=== PATIENT | female | born 1985 | race Caucasian/White ===

== ENCOUNTER 2018-07-30 11:02 | Emergency (ER) | payer SELFPAY ==
[~2018-07-30] VITALS: Ht 170.2 cm; Wt 71.5 kg
[~2018-07-30 11:02] MED LIST: CEPH-443 PO; IBUP800T48 PO
[2018-07-30 11:04] VITALS: Ht 170.2 cm; Wt 71.5 kg
--- NOTE | 2018-07-30 12:19 | ERD ---
ER Documentation Chief Complaint Chief Complaint blood in stool x 3 weeks , 22 weeks preg , see note HPI The patient is a 33-year-old female, presenting to the ER because of intermittent bloody stool and formed straining. She is 22 weeks , was put on iron supplements due to anemia for the last 3 weeks. She has been consti pated for the last 3 weeks, denies fever, chills, neck pain, chest pain or dyspnea, abdominal pain, vomiting, dysuria. She does not smoke, 2 para 1 1 Past medical history: Anemia Past surgical history: Cervical cyst ROS All systems reviewed and are negative except as per history of present illness. Medications Home Meds Reported Medications Ferrous Sulfate* (Ferrous Sulfate*) 325 Mg Tabec, 325 MG PO DAILY, TAB 07/30/18 Vit No.78/Iron/FA (Prenatabs FA Tablet) 1 Each Tablet, 1 TAB PO DAILY, TAB 07/30/18 Discontinued Scripts Cephalexin* (Keflex*) 500 Mg Capsule, 500 MG PO QID for 5 Days, CAP Prov:SAJI SIDHU. SEXUAL ASSAULT RESPONSE COORDINATOR 11/18/14 Ibuprofen* (Motrin*) 800 Mg Tab, 800 MG PO Q8 PRN for PAIN AND OR ELEVATED TEMP, #30 TAB Prov:SAJI SIDHU. SEXUAL ASSAULT RESPONSE COORDINATOR 11/18/14 Allergies Allergies: Coded Allergies: No Known Allergy (Unverified , 07/30/18) PMhx/Soc History of Surgery: Yes (Neck Abcess Removal) Anesthesia Reaction: No Hx Neurological Disorder: No Hx Respiratory Disorders: No Hx Cardiac Disorders: No Hx Psychiatric Problems: No Hx Miscellaneous Medical Probl: No Hx Alcohol Use: No Hx Substance Use: Yes (Cannabis) Hx Tobacco Use: Yes Physical Exam Vitals Vital Signs Date Temp Pulse Resp B/P (MAP) Pulse Ox O2 O2 Flow FiO2 Time Delivery Rate 07/30/18 68 18 116/78 100 Room Air 14:06 (91) 07/30/18 98.1 77 18 127/69 99 11:04 (88) Physical Exam Const: No acute distress. Head: Atraumatic. Eyes: Normal Conjunctiva. ENT: Normal External Ears, Nose and Mouth. Neck: Full range of motion. No meningismus. Resp: Clear to auscultation bilaterally. Cardio: Regular rate and rhythm. Abd: Soft, non distended, normal bowel sounds, non tender. Skin: No petechiae or rashes. Back: No midline or flank tenderness. Ext: No cyanosis, or edema. Neur: Awake and alert. No focal deficit Psych: Normal Mood and Affect. Rectal: No external hemorrhoids Result Diagram: 07/30/18 1248 07/30/18 1248 Results 24 hrs Laboratory Tests Test 07/30/18 12:48 White Blood Count 12.3 10^3/ul Red Blood Count 3.85 10^6/ul Hemoglobin 12.3 g/dl Hematocrit 35.1 % Mean Corpuscular Volume 91.2 fl Mean Corpuscular Hemoglobin 31.9 pg Mean Corpuscular Hemoglobin Concent 35.0 g/dl Red Cell Distribution Width 12.6 % Platelet Count 240 10^3/UL Mean Platelet Volume 8.9 fl Immature Granulocytes % 0.600 % Neutrophils % 70.9 % Lymphocytes % 19.7 % Monocytes % 7.4 % Eosinophils % 1.1 % Basophils % 0.3 % Nucleated Red Blood Cells % 0.0 /100WBC Immature Granulocytes # 0.070 10^3/ul Neutrophils # 8.7 10^3/ul Lymphocytes # 2.4 10^3/ul Monocytes # 0.9 10^3/ul Eosinophils # 0.1 10^3/ul Basophils # 0.0 10^3/ul Nucleated Red Blood Cells # 0.0 10^3/ul Prothrombin Time 12.2 Sec Prothrombin Time Ratio 1.0 INR International Normalized Ratio 0.89 Activated Partial Thromboplast Time 30.6 Sec Sodium Level 136 mmol/L Potassium Level 3.9 mmol/L Chloride Level 106 mmol/L Carbon Dioxide Level 23 mmol/L Anion Gap 7 Blood Urea Nitrogen 7 mg/dl Creatinine 0.45 mg/dl Est Glomerular Filtrat Rate mL/min > 60 mL/min Glucose Level 83 mg/dl Calcium Level 9.5 mg/dl Total Bilirubin 0.6 mg/dl Direct Bilirubin 0.00 mg/dl Indirect Bilirubin 0.6 mg/dl Aspartate Amino Transf (AST/SGOT) 17 IU/L Alanine Aminotransferase (ALT/SGPT) 18 IU/L Alkaline Phosphatase 57 IU/L Total Protein 6.8 g/dl Albumin 3.7 g/dl Globulin 3.10 g/dl Albumin/Globulin Ratio 1.19 Procedures/MDM MEDICAL MAKING DECISION: The patient is a 33-year-old female, presenting with acute hematochezia, most likely due to constipation. She is stable for outpatient follow-up The differential diagnoses considered include but are not limited to internal hemorrhoids, rectal fissure, carcinoma, polyp, hemorrhoid, fissure, diverticulosis, angiodysplasia. Departure Diagnosis: Primary Impression: Hematochezia Condition: Good Comments I discussed the findings with the patient. I advised the patient to follow-up with the primary physician in about 2-3 days for evaluation and referral to product architect, sooner if needed and return if any concern. Disclaimer: Inadvertent spelling and grammatical errors are likely due to EHR/dictation software use and do not reflect on the overall quality of patient care. Also, please note that the electronic time recorded on this note does not necessarily reflect the actual time of the patient encounter. ALBERT KRAMER MD Jul 30, 2018 12:19
[2018-07-30] MEDS ORDERED: PREN-17 PO (13:46)
[2018-07-30] MEDS ORDERED: FER325 PO (13:46)
[2018-07-30 14:06] VITALS: BP 116/78; PULSE 68; RESP 18
== END 2018-07-30 14:20 | disposition home or self-care (01) ==
LOC: E/R 11:02
DX: O20.8 Other hemorrhage in early pregnancy (principal); K92.1 Melena; Z3A.22 22 weeks gestation of pregnancy
CPT/HCPCS: 80053; 85025; 85610; 85730; 86850; 86900; 86901; 99283

== ENCOUNTER 2018-10-16 04:51 | Emergency (ER) | payer BC, MEDICAID ==
[~2018-10-16] VITALS: Ht 162.6 cm; Wt 74.0 kg
[~2018-10-16 04:51] MED LIST changes: -CEPH-443 PO; +FER325 PO; -IBUP800T48 PO; +PREN-17 PO
[2018-10-16 04:53] VITALS: BP 129/79; PULSE 83; RESP 22; Ht 162.6 cm; Wt 74.0 kg
[2018-10-16] MEDS ORDERED: ACETAMINOPHEN 500 MG TAB PO STA (06:14)
[2018-10-16] MEDS ORDERED: ACET325T33 PO (06:16)
[2018-10-16] MEDS ORDERED: AMOX1TAB10 PO (06:16)
--- NOTE | 2018-10-16 06:50 | ERD ---
ER Documentation Chief Complaint Chief Complaint 33WKS PREG-NO PREG PROBLEMS; LEFT EAR PAIN X1.5DAYS WITH COUGH X1WK HPI 33-year-old female presenting with pain to her left ear x1 day. Patient has tactile fevers. She had a recent cold over the last week with runny nose and cough. She took Tylenol with mild alleviation of pain. Patient is 33 weeks without complication. Denies other medical problems. NKDA. Surgical history denies. Social history denies ROS All systems reviewed and are negative except as per history of present illness. Medications Home Meds Active Scripts Acetaminophen* (Tylenol*) 325 Mg Tablet, 2 TAB PO Q6 PRN for PAIN AND OR ELEVATED TEMP, #20 TAB Prov:MAURI FERREIRA PA-C 10/16/18 Amoxicillin/Potassium Clav (Amox-Clav 875-125 mg Tablet) 875-125 mg Tab, 1 TAB PO BID for 7 Days, #14 TAB Prov:MAURI FERREIRA PA-C 10/16/18 Reported Medications Ferrous Sulfate* (Ferrous Sulfate*) 325 Mg Tabec, 325 MG PO DAILY, TAB 07/30/18 Vit No.78/Iron/FA (Prenatabs FA Tablet) 1 Each Tablet, 1 TAB PO DAILY, TAB 07/30/18 Allergies Allergies: Coded Allergies: No Known Allergy (Unverified , 07/30/18) PMhx/Soc History of Surgery: Yes (Neck Abcess Removal) Anesthesia Reaction: No Hx Neurological Disorder: No Hx Respiratory Disorders: No Hx Cardiac Disorders: No Hx Psychiatric Problems: No Hx Miscellaneous Medical Probl: No Hx Alcohol Use: No Hx Substance Use: Yes (Cannabis) Hx Tobacco Use: No Smoking Status: Former smoker FmHx Family History: No diabetes, No coronary disease, No other Physical Exam Vitals Vital Signs Date Temp Pulse Resp B/P (MAP) Pulse Ox O2 O2 Flow FiO2 Time Delivery Rate 10/16/18 97.0 83 22 129/79 99 04:53 (96) Physical Exam GENERAL: The patient is well-appearing, well-nourished, in no acute distress HEENT: Atraumatic. Conjunctivae are pink. Pupils equal, round, and reactive to light. There is no scleral icterus. Tympanic membranes erythematous to the left ear with bulging. No perforation. Oropharynx clear. NECK: C-spine is soft and supple. There is no meningismus. There is no cervical lymphadenopathy. CHEST: Clear to auscultation bilaterally. There are no rales, wheezes or rhonchi. HEART: Regular rate and rhythm. No murmurs, clicks, rubs or gallops. Results 24 hrs Current Medications Medications Dose Sig/Yen Start Time Status Last (Trade) Ordered Route PRN Stop Time Admin Dose Reason Admin 1,000 mg ONCE STAT 10/16/18 DC 10/16/18 Acetaminophen PO 06:14 06:25 (Tylenol 10/16/18 06:15 Tab) Procedures/MDM ER course: Tylenol given in ED. MDM: 33-year-old female presenting with pain to her left ear. Patient has findings consistent with otitis media. I have low suspicion for mastoiditis. I have low suspicion for retained foreign body or otitis externa. Patient is discharged with strict ER precautions and told to follow-up with primary care within 1 to 2 days for close evaluation. Patient is discharged with strict ER precautions. All questions answered at discharge Departure Diagnosis: Primary Impression: Left ear pain Condition: Stable Patient Instructions: Otitis Media, Abx Tx (Adult) Referrals: [facility] YOU HAVE RECEIVED A MEDICAL SCREENING EXAM AND THE RESULTS INDICATE THAT YOU DO NOT HAVE A CONDITION THAT REQUIRES URGENT TREATMENT IN THE EMERGENCY DEPARTMENT. FURTHER EVALUATION AND TREATMENT OF YOUR CONDITION CAN WAIT UNTIL YOU ARE SEEN IN YOUR DOCTORS OFFICE WITHIN THE NEXT 1-2 DAYS. IT IS YOUR RESPONSIBILITY TO MAKE AN APPOINTMENT FOR FOLOW-UP CARE. IF YOU HAVE A PRIMARY DOCTOR --you should call your primary doctor and schedule an appointment IF YOU DO NOT HAVE A PRIMARY DOCTOR YOU CAN CALL OUR PHYSICIAN REFERRAL HOTLINE AT IF YOU CAN NOT AFFORD TO SEE A PHYSICIAN YOU CAN CHOSE FROM THE FOLLOWING [facility] [address] [facility] [address] [facility] [address] [facility] [facility] [address] [facility]. [facility] [address] [facility]. [facility]. [address] Additional Instructions: FOLLOW UP WITH YOUR PRIMARY CARE PHYSICIAN TOMORROW.Return to this facility if you are not improving as expected. MAURI FERREIRA PA-C Oct 16, 2018 06:50
== END 2018-10-16 06:29 | disposition home or self-care (01) ==
LOC: FTE 04:51
DX: O99.89 Other specified diseases and conditions complicating pregnancy, childbirth and the puerperium (principal); H92.02 Otalgia, left ear; Z3A.33 33 weeks gestation of pregnancy
CPT/HCPCS: 99283; Z7610

== ENCOUNTER 2018-11-22 17:31 | Outpatient (CLI) | payer BC ==
[~2018-11-22] VITALS: Ht 170.2 cm; Wt 75.3 kg
[~2018-11-22 17:31] MED LIST changes: +ACET325T33 PO; +AMOX1TAB10 PO
[2018-11-22 18:22] VITALS: Ht 170.2 cm; Wt 75.3 kg
[2018-11-22] MEDS ORDERED: ONDANSETRON 4 MG INJ IV PRN (18:30)
[2018-11-22] MEDS: LACTATED RINGER'S 1,000 ML IV SCH ×2 (19:20→23:38)
[2018-11-23] MEDS ORDERED: LACTATED RINGER'S 1,000 ML IV PRN (01:55)
[2018-11-23] MEDS ORDERED: LACTATED RINGER'S 1,000 ML IV SCH (01:55)
[2018-11-23] MEDS ORDERED: OXYTOCIN 30 UNITS/LR 500 ML IV SCH ×2 (02:00)
[2018-11-23] MEDS ORDERED: OXYTOCIN 30 UNITS/LR 500 ML IV PRN (02:00)
[2018-11-23] MEDS ORDERED: CARBOPROST 250 MCG INJ IM PRN (02:00)
[2018-11-23] MEDS ORDERED: LIDOCAINE 1% (MPF) 30 ML INJ INJ PRN (02:00)
[2018-11-23] MEDS ORDERED: IBUPROFEN 600 MG TAB PO PRN (02:00)
[2018-11-23] MEDS ORDERED: METHYLERGONOVINE 0.2 MG INJ IM PRN (02:00)
[2018-11-23] MEDS ORDERED: MISOPROSTOL 200 MCG TAB PR PRN (02:00)
[2018-11-23] MEDS ORDERED: BUTORPHANOL 2 MG INJ IV PRN (02:00)
--- NOTE | 2018-11-23 02:46 | TRIAGE ---
OB Triage Datetime Report Generated by CPN: 11/23/2018 02:46 Datetime: 11/23/2018 02:00 Labor Evaluation Frequency: 4-6 Monitor Mode: External Duration (sec)2399: 60-90 Pattern: Normal: <= 5 Contractions in 10 Minutes Heart Rate FHR Baseline Rate: 145 Monitor Mode: External US Variability: Moderate 6-25 bpm Accelerations: 15X15 Decelerations: None Datetime: 11/23/2018 01:47 Effacement (%): 0 Station: -3 Membrane Status: Intact Datetime: 11/23/2018 01:33 Pain Assessment Pain Scale: 4 Pain Presence: Intermittent Pain Type: Ache Pain Location: Abdomen; Back Pain Relief Measures: Comfort Measures Vaginal Exam Dilatation (cms): 0.0 Datetime: 11/23/2018 01:00 Labor Evaluation Frequency: IRREGULAR Monitor Mode: External Duration (sec)2399: 40-120 Pattern: Normal: <= 5 Contractions in 10 Minutes Heart Rate FHR Baseline Rate: 145 Monitor Mode: External US Variability: Moderate 6-25 bpm Accelerations: 15X15 Decelerations: Variable Category: Category II Datetime: 11/23/2018 00:00 Labor Evaluation Frequency: IRREGULAR Monitor Mode: External Duration (sec)2399: 50-90 Pattern: Normal: <= 5 Contractions in 10 Minutes Heart Rate FHR Baseline Rate: 145 Monitor Mode: External US Comments: LOSS OF CONTACT DUE TO CHANGES IN PT'S POSITIONS Datetime: 11/22/2018 23:36 Maternal Assessment Level of Consciousness: Keenly Alert, Responsive Respiratory Effort: Unlabored; Regular Rhythm; Equal Expansion Nausea/Vomiting: Hx of Nausea/Vomiting Monitor Mode: External Monitor Mode: External US Pain Assessment Pain Scale: 6 Pain Presence: Intermittent Pain Type: Ache Pain Location: Abdomen; Back Pain Goal: 0 Pain Relief Measures: Comfort Measures Datetime: 11/22/2018 23:00 Labor Evaluation Frequency: IRREGULAR Monitor Mode: External Duration (sec)2399: 40-110 Pattern: Normal: <= 5 Contractions in 10 Minutes Heart Rate FHR Baseline Rate: 150 Monitor Mode: External US Variability: Moderate 6-25 bpm Accelerations: 15X15 Comments: LOSS OF CONTACT Datetime: 11/22/2018 22:00 Labor Evaluation Frequency: 1.5-3 Monitor Mode: External Duration (sec)2399: 40-100 Pattern: Normal: <= 5 Contractions in 10 Minutes Heart Rate FHR Baseline Rate: 155 Monitor Mode: External US Variability: Moderate 6-25 bpm Accelerations: 15X15 Decelerations: None Category: Category I Datetime: 11/22/2018 21:00 Labor Evaluation Frequency: 1.5-4 Monitor Mode: External Duration (sec)2399: 40-120 Pattern: Normal: <= 5 Contractions in 10 Minutes Heart Rate FHR Baseline Rate: 155 Monitor Mode: External US Variability: Moderate 6-25 bpm Accelerations: 15X15 Decelerations: None Datetime: 11/22/2018 20:00 Maternal Assessment Level of Consciousness: Keenly Alert, Responsive Headache: Temporal; Frontal Blurred Vision: No Respiratory Effort: Unlabored; Regular Rhythm; Equal Expansion Nausea/Vomiting: Present RUQ Epigastric Pain: Denies Labor Evaluation Frequency: 1.5-4.5 Monitor Mode: External Duration (sec)2399: 50-110 Pattern: Normal: <= 5 Contractions in 10 Minutes Heart Rate FHR Baseline Rate: 155 Monitor Mode: External US Variability: Moderate 6-25 bpm Accelerations: 15X15 Decelerations: None Category: Category I Pain Assessment Pain Scale: 6 Pain Presence: Intermittent Pain Type: Ache Pain Location: Abdomen; Back Pain Goal: 0 Pain Relief Measures: Comfort Measures Datetime: 11/22/2018 19:04 Vaginal Exam Dilatation (cms): 0.0 Datetime: 11/22/2018 18:48 EGA: 38.5 Datetime: 11/22/2018 18:21 Labor Evaluation Frequency: 2-4 Monitor Mode: External Duration (sec)2399: 50-80 Quality: Moderate Pattern: Normal: <= 5 Contractions in 10 Minutes Resting Tone [place]: Relaxed Heart Rate FHR Baseline Rate: 145 Monitor Mode: External US FHR Baseline Changes: No Baseline Change Variability: Moderate 6-25 bpm Accelerations: 15X15 Decelerations: None Category: Category I Pain Assessment Pain Scale: 2 Pain Presence: Intermittent Pain Type: Cramping Pain Location: Abdomen Pain Relief Measures: Comfort Measures Datetime: 11/22/2018 18:20 Time of Arrival: 11/22/2018 18:00 EGA: 38.5 Arrived By: Ambulatory Arrived From: Home Chief Complaint: N_V Movement: Present Contractions: Denies/Absent Rupture of Membranes: Denies Vaginal Bleeding: None Vaginal Discharge: Denies Recent Sexual Intercouse: Denies Abdominal Trauma: Not Applicable Patient Complaints: None Time Provider Notified: 11/22/2018 18:10 Provider Notified: KANDI Initial Plan: CBC,CMP,IV HYDRATION, ZOFRAN PRN. BPP, UA, NPO Datetime: 11/22/2018 18:04 Stage of : OB Triage Assessment Type: Triage Maternal Assessment Level of Consciousness: Keenly Alert, Responsive DTR's/Clonus: DTRs 2+; No Clonus Headache: Denies Blurred Vision: No Respiratory Effort: Unlabored; Regular Rhythm; Equal Expansion Breath Sounds, Left: Clear and Equal Breath Sounds, Right: Clear and Equal Nausea/Vomiting: Denies RUQ Epigastric Pain: Denies Lower Extremities Edema: None Degree: None Upper Extremities Edema: None Degree: None Facial Edema: None Temperature Route: Axillary Fall Risk Assessment History of Falling: (0) No Secondary Diagnosis: (0) No Ambulatory Aid: (0) Bedrest/Nurse Assist IV Therapy: (0) No Gait: (0) Normal/Bedrest/Immobile Mental Status: (0) Oriented to Own Ability Fall Score: 0 Fall Risk Score Definition: No Risk: No action required
[2018-11-23 08:09] VITALS: BP 112/64; PULSE 81; RESP 20
--- NOTE | 2018-11-23 15:44 | HP ---
Date/Time of Note Date/Time of Note DATE: 11/23/18 TIME: 14:44 OB - History Hx of Present Free Text/Dictation 33y.o was admitted through triage [place] of vomiting , and variable deceleration by her OB Initial VE closed/long/-3 EFM uc q2-6min pain 10 according to communication note no variable deceleration just CAT I tracing. Hx of using cocaine and meth in early . admitted for further evaluation and extended monitoring of FHR.and control of N&V. Chief Complaint: vomiting Estimated Due Date: Dec 01, 2018 : 2 Para: 0 Spontaneous : 0 Therapeutic : 0 Care: Other Ultrasounds: Other Obstetrical Complications: None Medical Complications: None Past Family/Social History * Past Medical, Surgical, Family and Obstetric Histories reviewed from chart. Blood Type: Unknown Rubella: unknown RPR/VDRL: Unknown GBS Status: Negative HBsAG: Unknown OB Admission Exam Vital Signs Vital Signs Vital Signs Date Temp Pulse Resp B/P (MAP) Pulse Ox O2 O2 Flow FiO2 Time Delivery Rate 11/23/18 97.9 81 20 112/64 Room Air 08:09 (80) Physical Exam HEENT: WNL Heart: Rhythm Normal Lungs: Clear, Equal Abdomen: WNL Extremities: Normal Reflexes: Normal Cervical Dilatation: None Effacement: 0% Station: -3 Membranes: Intact Amniotic Fluid: Unevaluable Heart Rate: 130's Accelerations: Accelerations Present Decelerations: No Decelerations Varibility: Moderate Contractions on Admission: >10 Minutes Apart Intensity: Mild Last 72 hours Lab Results CBC & BMP 11/22/18 19:00 Liver Function Test 11/22/18 19:00 Alanine Aminotransferase (ALT/SGPT) 27 Albumin 4.0 Alkaline Phosphatase 146 H Aspartate Amino Transf (AST/SGOT) 27 Direct Bilirubin 0.00 Total Protein 7.6 OB Assessment/Plan Other Assessment: A IUP 38w6d NIL N&V Plan: Other ( her OB dosent want to induce labotr and discharge home , explain to patient and discharge home) GERRY DENT MD Nov 23, 2018 15:44
--- NOTE | 2018-11-23 15:48 | PD.PPDC ---
QUALITY INTERN Discharge Instruction Diagnosis [id number] Final Diagnosis: Ducnu5u IUP 38w6d nausea vomiting Condition [id number] Patient Condition: Mcqho4h Stable Diet Krozi3Yd Diet: Uufjt7r Special Diet Activity/Restrictions Byagi5On Activity: Yntkd9q May Shower [id number] Restrictions: Tztyd7z No Lifting No Sexual Activity Nothing in the Vagina No [place] No Tampons, douche Follow-up Provider Information: f/u with her OB as scheduled or RTH prn with routine labor instructions GERRY DENT MD Nov 23, 2018 15:48
--- NOTE | 2018-11-23 15:50 | DS ---
Date/Time of Note Date/Time of Note DATE: 11/23/18 TIME: 15:49 Obstetrical Discharge Record Final Diagnosis Final Diagnosis: Term not delivered Complications Augmentation: No Induction: No Condition on Discharge Physical Assessment Last Vitals: EFM CAT I vss afebrile Voiding: Yes Bowel Movement: Yes Breast: Other () Fundus: Other () Abdomen and Incision: Episiotomy: n/a Calf Tenderness: No Patient Condition: Stable GERRY DENT MD Nov 23, 2018 15:50
== END 2018-11-23 14:00 | disposition home or self-care (01) ==
LOC: OBT 17:31 → L-D 17:31 → OBT 11-23 01:45 → UNDOADMIN 11-23 01:45 → L-D 11-23 01:45 → OBT 11-23 14:00
PROVIDERS: ATTEND Obstetrics & Gynecology
DX: O21.0 Mild hyperemesis gravidarum (principal); Z3A.38 38 weeks gestation of pregnancy
CPT/HCPCS: 36415; 76816; 76818; 80053; 80307; 81001; 85025; 85610; 85730; 86592; 86850; 86900; 86901; 87340; 96360; 96361; J2405; J7120; Z7500; G0463

== ENCOUNTER 2018-12-07 15:41 | Inpatient (IN) | payer BC ==
[~2018-12-07] VITALS: Ht 170.2 cm; Wt 77.2 kg
[~2018-12-07 15:41] MED LIST changes: -ACET325T33 PO; -AMOX1TAB10 PO
[2018-12-07 16:42] VITALS: BP 124/75; PULSE 78; RESP 18; Ht 170.2 cm; Wt 77.2 kg
[2018-12-07] MEDS ORDERED: BUTORPHANOL 2 MG INJ IV PRN ×2 (18:00)
[2018-12-07] MEDS ORDERED: OXYTOCIN 30 UNITS/LR 500 ML IV PRN (18:00)
[2018-12-07] MEDS ORDERED: CARBOPROST 250 MCG INJ IM PRN (18:00)
[2018-12-07] MEDS ORDERED: LIDOCAINE 1% (MPF) 30 ML INJ INJ PRN (18:00)
[2018-12-07] MEDS ORDERED: METHYLERGONOVINE 0.2 MG INJ IM PRN (18:00)
[2018-12-07] MEDS ORDERED: OXYTOCIN 30 UNITS/LR 500 ML IV SCH ×2 (18:00)
[2018-12-07] MEDS ORDERED: MISOPROSTOL 200 MCG TAB PR PRN (18:00)
[2018-12-07] MEDS: LACTATED RINGER'S 1,000 ML IV SCH (19:50)
[2018-12-07] MEDS: MISOPROSTOL 50 MCG CAPSULE PO SCH (21:05)
[2018-12-08] MEDS: LACTATED RINGER'S 1,000 ML IV SCH ×3 (02:53→19:37)
[2018-12-08] MEDS: MISOPROSTOL 50 MCG CAPSULE PO SCH ×5 (06:43→23:54)
[2018-12-08] MEDS ORDERED: MISOPROSTOL 50 MCG CAPSULE ONE (23:45)
[2018-12-09] MEDS: LACTATED RINGER'S 1,000 ML IV SCH ×4 (01:04→15:36)
[2018-12-09] MEDS ORDERED: LACTATED RINGER'S 1,000 ML IV PRN (01:05)
--- NOTE | 2018-12-09 01:52 | PREAC ---
Date/Time of Note Date/Time of Note DATE: 12/09/18 TIME: 01:51 Anesthesia Eval and Record Evaluation Time Pre-Procedure Interview DATE: 12/09/18 TIME: 01:51 Age 33 Sex female NPO: 8 hrs Preoperative diagnosis ;abor pain Planned procedure epidural Past Medical History Past Medical History: Includes Surgery & Anesthesia Issues No known issue Meds Anticoagulation: No Beta Nitish within 24 hr: No Reason Beta Nitish not given: Pt. not on B-Nitish Reported Medications Ferrous Sulfate* (Ferrous Sulfate*) 325 Mg Tabec, 325 MG PO DAILY, TAB 07/30/18 Vit No.78/Iron/FA (Prenatabs FA Tablet) 1 Each Tablet, 1 TAB PO DAILY, TAB 07/30/18 Current Medications Lactated Ringer's 1,000 ml @ 125 mls/hr Q8H IV Last administered on 12/08/18at 19:37; Admin Dose 125 MLS/HR; Start 12/07/18 at 17:41 Butorphanol Tartrate (Stadol) 1 mg Q2H PRN IV .PAIN SCALE 1-5; Start 12/07/18 at 18:00 Butorphanol Tartrate (Stadol) 2 mg Q2H PRN IV .PAIN SCALE 6-10; Start 12/07/18 at 18:00 Lidocaine (Xylocaine 1% (Mpf)) 30 ml ONCE PRN INJ .EPISIOTOMY; Start 12/07/18 at 18:00 Oxytocin/Lactated Ringer's 500 ml @ 500 mls/hr ONCE POST IV ; Start 12/07/18 at 18:00 Oxytocin/Lactated Ringer's 500 ml @ 125 mls/hr POST IV ; Start 12/07/18 at 18:00 Oxytocin/Lactated Ringer's 500 ml @ 0 mls/hr ONCE PRN IV .VAGINAL BLEEDING; Start 12/07/18 at 18:00 Methylergonovine Maleate (Methergine) 0.2 mg ONCE PRN IM .VAGINAL BLEEDING; Start 12/07/18 at 18:00 Carboprost Tromethamine (Hemabate) 250 mcg ONCE PRN IM .VAGINAL BLEEDING; Start 12/07/18 at 18:00 Misoprostol (Cytotec) 1,000 mcg ONCE PRN ME .VAGINAL BLEEDING; Start 12/07/18 at 18:00 Lactated Ringer's 1,000 ml @ 2,000 mls/hr Q30M PRN IV .ANESTHESIA; Start 12/09/18 at 01:05 Meds reviewed: Yes Allergies Coded Allergies: No Known Allergy (Unverified , 07/30/18) Allergies Reviewed: Yes Labs/Studies Labs Reviewed: Reviewed by anesthesiologist Result Diagram: 12/07/18 1810 test: Positive Studies: ECG (n/a), CXR (n/a) Pre-procedure Exam Last vitals Vital Signs Date Temp Pulse Resp B/P (MAP) Pulse Ox O2 O2 Flow FiO2 Time Delivery Rate 12/07/18 97.9 78 18 124/75 16:42 (91) Airway: Adequate mouth opening Mallampati: Mallampati I Teeth: Normal Lung: Normal Heart: Normal ASA Physical Status ASA physical status: 2 Emergency: None Planned Anesthetic Neuraxial: Epidural Pre-operative Attestations Prior to commencing anesthesia and surgery, the patient was re-evaluated, there was verification of: *The patient's identity *The results of appropriate recent lab work and preoperative vital signs *The above evaluation not changing prior to induction *Anesthetic plan, risk benefits, alternative and complications discussed with patient/family; questions answered; patient/family understands, accepts and wishes to proceed. ASHLEY MARQUEZ MD Dec 09, 2018 01:52
[2018-12-09] MEDS ORDERED: NALOXONE (0.4 MG/ML) INJ IV PRN (02:00)
[2018-12-09] MEDS ORDERED: ONDANSETRON 4 MG INJ IV PRN (02:00)
[2018-12-09] MEDS ORDERED: DIPHENHYDRAMINE 50 MG INJ IV PRN (02:00)
--- NOTE | 2018-12-09 03:30 | PAC ---
Date/Time of Note Date/Time of Note DATE: 12/09/18 TIME: 03:30 Post-Anesthesia Notes Post-Anesthesia Note Last documented vital signs Vital Signs Date Temp Pulse Resp B/P (MAP) Pulse Ox O2 O2 Flow FiO2 Time Delivery Rate 12/07/18 97.9 78 18 124/75 100 16:42 (91) Activity: WNL Respiratory function: WNL Cardiovascular function: WNL Mental status: Baseline Pain reasonably controlled: Yes Hydration appropriate: Yes Nausea/Vomiting absent: No ASHLEY MARQUEZ MD Dec 09, 2018 03:30
--- NOTE | 2018-12-09 06:28 | HP ---
Date/Time of Note Date/Time of Note DATE: 12/09/18 TIME: 06:25 OB - History Hx of Present Free Text/Dictation IOL for postdates Estimated Due Date: Dec 01, 2018 Care: Good Care Obstetrical Complications: None Medical Complications: None Past Family/Social History * Past Medical, Surgical, Family and Obstetric Histories reviewed from chart. OB Admission Exam Vital Signs Vital Signs Vital Signs Date Temp Pulse Resp B/P (MAP) Pulse Ox O2 O2 Flow FiO2 Time Delivery Rate 12/07/18 97.9 78 18 124/75 16:42 (91) Physical Exam HEENT: WNL Heart: Rhythm Normal Abdomen: WNL Cervical Dilatation: 1cm Effacement: 75% Station: -1 Membranes: Intact Contractions on Admission: 6-10 Minutes Apart Last 72 hours Lab Results CBC & BMP 12/07/18 18:10 OB Assessment/Plan Reason for admission: other (IUP 41 weeks IOL for postdates, EFW 3600 gr) Other plan: completed X 6 cytotecs, start pitocin, epidural per patient request LANDON STEARNS MD Dec 09, 2018 06:28
[2018-12-09] MEDS ORDERED: OXYTOCIN 30 UNITS/LR 500 ML IV SCH (06:30)
[2018-12-09] MEDS: FENTAnyl 2MCG/ML-ROPIV 0.2% 100 ML BAG EPI SCH ×2 (11:13→19:30)
[2018-12-10] MEDS ORDERED: MINERAL OIL LIGHT 10 ML VIAL ONE (00:22)
[2018-12-10] MEDS ORDERED: OXYTOCIN 30 UNITS/LR 500 ML IV SCH (00:49)
--- NOTE | 2018-12-10 00:49 | LDN ---
Date/Time of Note Date/Time of Note DATE: 12/10/18 TIME: 00:48 Delivery Summary Weeks of Gestation 41 Placenta Delivered: Spontaneously Meconium: none Episiotomy: No Perineal laceration: 2 Laceration repair: 2ND DEGREE PERINEAL LACERATION REPAIR WITH 2- AND 4-0 CHROMIC Anesthesia type: Epidural Estimated blood loss: 150 Sponge & Needle done & correct: Yes All needle counts correct: Yes Any foreign bodies felt in the: No Infant Delivery Information Sex Infant Sex: female Apgars 1 Minute: 8 5 Minute: 9 Suctioning Nose & mouth suctioned at rigo: No Delee suction performed: No Umbilical Cord Umbilical cord with: 3 Vessels Cord presentations: no nuchal cord Cord Blood was obtained: Yes ALBERT CHAU MD Dec 10, 2018 00:49
[2018-12-10] MEDS ORDERED: OXYTOCIN 30 UNITS/LR 500 ML IV PRN (01:00)
[2018-12-10] MEDS ORDERED: MISOPROSTOL 200 MCG TAB PR PRN (01:00)
[2018-12-10] MEDS ORDERED: CARBOPROST 250 MCG INJ IM PRN (01:00)
[2018-12-10] MEDS ORDERED: ONDANSETRON 4 MG INJ IV PRN ×2 (01:00→02:30)
[2018-12-10] MEDS ORDERED: ACETAMINOPHEN 325 MG TAB PO PRN (01:00)
[2018-12-10] MEDS ORDERED: SENNA/DOCUSATE NA (8.6MG/50MG) TAB PO PRN (01:00)
[2018-12-10] MEDS ORDERED: OXYCODONE/ASPIRIN (4.88/325) TAB PO PRN (01:00)
[2018-12-10] MEDS ORDERED: METHYLERGONOVINE 0.2 MG INJ IM PRN (01:00)
[2018-12-10] MEDS ORDERED: NACL 0.9% 3 ML SYG IV SCH (01:00)
[2018-12-10 02:10] VITALS: BP 131/60; PULSE 80; RESP 20
[2018-12-10] MEDS: OXYCODONE/ASPIRIN (4.88/325) TAB PO PRN ×2 (02:56→21:27)
[2018-12-10] MEDS: BENZOCAINE 20% 56 ML SPRAY TOP PRN ×2 (02:57→16:44)
[2018-12-10] MEDS: LANOLIN HPA 1 PKT TOP PRN ×2 (02:57→16:44)
[2018-12-10] MEDS: WITCH HAZEL/GLYCERIN PAD PR PRN ×2 (02:57→16:44)
[2018-12-10 04:18] VITALS: BP 121/60; PULSE 72; RESP 20
[2018-12-10] MEDS: IBUPROFEN 600 MG TAB PO SCH ×3 (05:52→18:00)
[2018-12-10 08:00] VITALS: BP 111/63; PULSE 69; RESP 18
[2018-12-10] MEDS: SENNA/DOCUSATE NA (8.6MG/50MG) TAB PO SCH ×2 (08:22→21:21)
[2018-12-10 16:02] VITALS: BP 121/56; PULSE 69; RESP 18
[2018-12-10 20:15] VITALS: BP 117/63; PULSE 69; RESP 22
[2018-12-11 00:45] VITALS: BP 107/72; PULSE 62; RESP 20
[2018-12-11] MEDS: IBUPROFEN 600 MG TAB PO SCH ×7 (01:42→23:38)
[2018-12-11 05:00] VITALS: BP 119/59; PULSE 62; RESP 21
--- NOTE | 2018-12-11 05:10 | PD.PPDC ---
CATERERS HELPER Discharge Instruction Condition [id number] Patient Condition: Bzhlb9e Fair Diet Tbelk8Us Diet: Mpazs2s Resume Regular Diet Activity/Restrictions Wkgkt7Vl Activity: Cosmy5a Normal Activity May Shower [place]9Ox Restrictions: Qyxxx1l No Exercising No Lifting No Driving No Sexual Activity Nothing in the Vagina No [place] No Tampons, douche Follow-up Follow-up with Physician: 3, Week/Weeks Return to clinic for [id number] AUCTION ASSISTANT Instructions: Khsbk0f Fever greater than 101 Chills Worsening abdominal pain Excessive Vaginal Bleeding More than 2 pads per hour Unable to tolerate diet [id number] OB Instructions: Omfai8r Breast Tenderness Depression Blurried Vision Headache Kralz1Wn Surgical Instructions: Ajrzx9l Incisional Drainage Incisional Redness ALBERT CHAU MD Dec 11, 2018 05:10
[2018-12-11] MEDS: OXYCODONE/ASPIRIN (4.88/325) TAB PO PRN ×3 (05:55→23:17)
[2018-12-11] MEDS: BENZOCAINE 20% 56 ML SPRAY TOP PRN (08:49)
[2018-12-11] MEDS: WITCH HAZEL/GLYCERIN PAD PR PRN (08:49)
[2018-12-11 08:50] VITALS: BP 108/62; PULSE 58; RESP 18
[2018-12-11] MEDS: LANOLIN HPA 1 PKT TOP PRN (08:50)
[2018-12-11] MEDS: SENNA/DOCUSATE NA (8.6MG/50MG) TAB PO SCH ×2 (08:50→22:01)
[2018-12-11 16:15] VITALS: RESP 18
[2018-12-11 16:40] VITALS: BP 119/55; PULSE 72; RESP 18
[2018-12-11 19:10] VITALS: BP 125/59; PULSE 59; RESP 18
[2018-12-12 03:55] VITALS: BP 109/60; PULSE 61; RESP 18
[2018-12-12] MEDS: IBUPROFEN 600 MG TAB PO SCH ×2 (05:42→11:32)
[2018-12-12] MEDS: WITCH HAZEL/GLYCERIN PAD PR PRN (05:42)
[2018-12-12] MEDS: BENZOCAINE 20% 56 ML SPRAY TOP PRN (05:44)
[2018-12-12 08:00] VITALS: BP 110/63; PULSE 65; RESP 18
[2018-12-12] MEDS: SENNA/DOCUSATE NA (8.6MG/50MG) TAB PO SCH (09:23)
[2018-12-12] MEDS ORDERED: DIPHTH/TET/ACEL PERTUSS (ADULT) 0.5 ML VIAL IM* ONE (14:00)
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
== END 2018-12-12 15:05 | disposition home or self-care (01) | DRG 807 ==
LOC: OBT 15:41 → L-D 15:41 → OBT 17:00 → L-D 18:12 → PP1 12-10 02:04
PROVIDERS: ADMIT Obstetrics & Gynecology; ATTEND Obstetrics & Gynecology
PROC: 10E0XZZ Delivery of Products of Conception, External Approach (ICD-10-PCS; principal; 2018-12-10)
PROC: 3E033VJ Introduction of Other Hormone into Peripheral Vein, Percutaneous Approach (ICD-10-PCS; 2018-12-10)
DX: O48.0 Post-term pregnancy (principal); O70.1 Second degree perineal laceration during delivery; Z3A.41 41 weeks gestation of pregnancy; Z37.0 Single live birth
CPT/HCPCS: 62322; 76815; 76818; 80307; 85025; 85610; 85730; 86592; 86850; 86900; 86901; 87340; 90715; G0463; J2590; J3010; J7120